=== PATIENT | male | born 1950 | race Caucasian/White ===

== ENCOUNTER 2020-08-22 10:26 | Emergency (ER) | payer OTHER ==
[2020-08-22] MEDS ORDERED: SODIUM CHLORIDE 0.9% 500 ML INFUS.BAG IV ONE ×2 (10:30→12:32)
[2020-08-22 11:04] VITALS: TEMP 97.7; BMI 19.0
[2020-08-22 11:19] LABS: BASO % 0.9 % (0-2.0); EOS % 3.3 % (0-4.5); HEMATOCRIT 36.2 % (35.4-49); HEMOGLOBIN 12.1 GM/dl (11.7-16.9); LYMPH % 18.4 % (8-40); MCH 30.4 pg (25.7-33.7); MCHC 33.5 g/dl (32.0-35.9); MEAN CELL VOLUME 90.7 fl (80-96); MEAN PLT VOLUME 7.3 fl (7.5-11.1); MONO % 8.9 % (3.8-10.2); NEUT % 68.5 % (42.8-82.8); PLATELET COUNT 426 K/MM3 (134-434); RBC 3.98 M/mm3 (4.00-5.60); RDW 13.3 % (11.9-15.9); WHITE BLOOD COUNT 6.9 K/mm3 (4.0-10.8)
[2020-08-22 11:34] LABS: INR 1.22 (0.82-1.09); PROTHROMBIN TIME (PATIENT) 13.5 SEC (10.2-13.0)
[2020-08-22 11:45] LABS: ALBUMIN 4.2 g/dl (3.4-5.0); ALK PHOS 31 U/L (45-117); ANION GAP 10 MMOL/L (8-16); BILIRUBIN,TOTAL 0.6 mg/dl (0.2-1); CALCIUM 9.8 mg/dl (8.5-10); CHLORIDE 94 mmol/L (98-107); CO2 27 mmol/L (21-32); CREATININE 1.7 mg/dl (0.55-1.3); GLUCOSE,RANDOM 108 mg/dl (74-106); MAGNESIUM 1.2 mg/dL (1.8-2.4); PHOSPHOROUS 2.7 mg/dl (2.5-4.9); SGOT/AST 21 U/L (15-37); SGPT/ALT 15 U/L (13-61); SODIUM 131 mmol/L (136-145); TOT PROT 8.1 g/dl (6.4-8.2)
[2020-08-22] MEDS ORDERED: MAGNESIUM SULF 50% (8.12 MEQ/2 ML-1 GM VIAL) IVPB ONE (12:33)
[2020-08-22] MEDS ORDERED: MAGNESIUM SULF 50% (8.12 MEQ/2 ML-1 GM VIAL) ONE (12:35)
[2020-08-22 14:45] LABS: CALCIUM 8.7 mg/dl (8.5-10); CREATININE 1.4 mg/dl (0.55-1.3)
[2020-08-22 14:53] VITALS: BP 115/45; PULSE 62
== END 2020-08-22 15:08 | disposition home or self-care (01) ==
LOC: FER 10:26
PROC: 3E033NZ Introduction of Analgesics, Hypnotics, Sedatives into Peripheral Vein, Percutaneous Approach (ICD-10-PCS; principal; 2020-08-22)
DX: N17.9 Acute kidney failure, unspecified (principal); E83.42 Hypomagnesemia; R31.9 Hematuria, unspecified; N13.0 Hydronephrosis with ureteropelvic junction obstruction; R63.4 Abnormal weight loss
CPT/HCPCS: 36415; 71045-TC-FY; 74176-TC; 80048; 80053; 81003; 81015; 83735; 84100; 84484; 85025; 85610; 85730; 86850; 86900; 86901; 93005; 99285-25; C9803; U0003; U0005

== ENCOUNTER 2020-10-03 05:11 | Day surgery (SDC) | payer OTHER ==
[2020-10-02 10:06] VITALS: BMI 18.6
[2020-10-03] MEDS ORDERED: LIDOCAINE HCL/PF 2% SDV 5ML VIAL ONE (14:06)
[2020-10-03] MEDS ORDERED: PROPOFOL 20 ML ONE (14:06)
[2020-10-03] MEDS ORDERED: DEXAMETHASONE SOD PHOSPHATE 4 MG/1 ML VIAL ONE (14:06)
[2020-10-03] MEDS ORDERED: KETOROLAC TROMETHAMINE 30 MG/1 ML VIAL ONE (14:06)
[2020-10-03] MEDS ORDERED: MIDAZOLAM HCL 2 MG/2 ML SINGLE DOSE VIAL ONE (14:06)
[2020-10-03] MEDS ORDERED: ceFAZolin SODIUM 1 GM VIAL IVPB ONE (14:15)
[2020-10-03] MEDS ORDERED: oxyCODONE HCL 5 MG TABLET PO PRN (14:52)
[2020-10-03] MEDS ORDERED: ONDANSETRON 4 MG/2 ML VIAL IVPUSH PRN (14:52)
[2020-10-03] MEDS ORDERED: LACTATED RINGERS SOLUTION 1,000 ML IV SCH (15:00)
[2020-10-03] MEDS ORDERED: DEXTROSE 5%-0.45% SALINE 1,000 ML IV SCH (15:30)
[2020-10-03 17:18] VITALS: BP 117/51; PULSE 73; TEMP 97.3
== END 2020-10-03 17:18 | disposition home or self-care (01) ==
LOC: JASU-SURG 05:11
PROVIDERS: ATTEND Urology
PROC: 0T788DZ Dilation of Bilateral Ureters with Intraluminal Device, Via Natural or Artificial Opening Endoscopic (ICD-10-PCS; principal; 2020-10-03 14:00)
DX: N13.1 Hydronephrosis with ureteral stricture, not elsewhere classified (principal)
CPT/HCPCS: 76000-TC-FY; 94760

== ENCOUNTER 2020-10-04 10:45 | Emergency (ER) | payer OTHER ==
[2020-10-04 10:55] VITALS: BMI 18.1
[2020-10-04 12:50] LABS: BASO % 0.1 % (0-2.0); EOS % 0.2 % (0-4.5); HEMOGLOBIN 11.9 GM/dL (11.7-16.9); LYMPH % 11.1 % (8-40); MCH 30.4 pg (25.7-33.7); MCHC 33.9 g/dl (32.0-35.9); MEAN CELL VOLUME 89.7 fl (80-96); MEAN PLT VOLUME 7.4 fl (7.5-11.1); MONO % 8.6 % (3.8-10.2); PLATELET COUNT 398 10^3/uL (134-434); RDW 14.2 % (11.9-15.9); WHITE BLOOD COUNT 11.1 K/mm3 (4.0-10.0)
[2020-10-04 13:15] LABS: EPI CELLS >36 /uL (0-25.1); HYALINE CASTS 2 /uL (0-3.1); PH,URINE 6.5 (5.0-8.0); URINE APPEARANCE TURBID; URINE BACTERIA 2 /uL (0-1359); URINE BILIRUBIN NEGATIVE (NEGATIVE); URINE COLOR ORANGE; URINE GLUCOSE (UA) TRACE (NEGATIVE); URINE KETONE NEGATIVE (NEGATIVE); URINE LEUK ESTERASE 3+ (NEGATIVE); URINE NITRITE NEGATIVE (NEGATIVE); URINE PROTEIN 3+ (NEGATIVE); URINE WBC 469 /uL (0-25.8)
[2020-10-04 13:18] LABS: BLOOD UREA NITROGEN 36.3 mg/dL (7-18)
[2020-10-04 13:19] LABS: ALBUMIN 4.3 g/dl (3.4-5.0)
[2020-10-04 13:21] LABS: CREATININE 1.9 mg/dL (0.55-1.3)
[2020-10-04 13:23] LABS: BILIRUBIN,TOTAL 0.5 mg/dL (0.2-1); TOT PROT 8.8 g/dl (6.4-8.2)
[2020-10-04 14:57] VITALS: BP 128/60; PULSE 76; TEMP 97.9
[2020-10-04 15:35] LABS: YEAST NONE SEEN (NEGATIVE)
[2020-10-04 15:36] LABS: URINE RBC 13253 /uL (0-23.9)
== END 2020-10-04 14:50 | disposition home or self-care (01) ==
LOC: JER 10:45
DX: R33.9 Retention of urine, unspecified (principal); R10.9 Unspecified abdominal pain; T81.9XXA Unspecified complication of procedure, initial encounter
CPT/HCPCS: 36415; 80053; 81003; 85025; 87086; 99283-25

== ENCOUNTER 2020-10-08 04:46 | Emergency (ER) | payer OTHER ==
[2020-10-08 05:06] VITALS: BP 153/63; PULSE 92; TEMP 97.8; BMI 18.7
== END 2020-10-08 05:23 | disposition home or self-care (01) ==
LOC: FER 04:46
DX: R33.9 Retention of urine, unspecified (principal)
CPT/HCPCS: 99282-25

== ENCOUNTER 2021-04-17 04:26 | Day surgery (SDC) | payer OTHER ==
[2021-04-10 13:36] VITALS: BMI 18.6
[2021-04-17] MEDS ORDERED: ACETAMINOPHEN 1000 MG/100 ML BAG IVPB ONE (07:20)
[2021-04-17] MEDS ORDERED: LIDOCAINE HCL/PF 2% SDV 5ML VIAL ONE (07:26)
[2021-04-17] MEDS ORDERED: SUCCINYLCHOLINE CHLORIDE 200 MG/10 ML SYRINGE ONE (07:26)
[2021-04-17] MEDS ORDERED: PROPOFOL 20 ML ONE (07:26)
[2021-04-17] MEDS ORDERED: DEXTROSE 5%-0.45% SALINE 1,000 ML IV SCH (07:30)
[2021-04-17] MEDS ORDERED: IBUPROFEN 800 MG/8 ML IJ IVPB SCH (07:30)
[2021-04-17] MEDS ORDERED: ceFAZolin SODIUM 1 GM VIAL IVPB ONE (07:40)
[2021-04-17] MEDS ORDERED: ceFAZolin SODIUM 1 GM VIAL ONE (07:42)
[2021-04-17] MEDS ORDERED: DEXAMETHASONE SOD PHOSPHATE 4 MG/1 ML VIAL ONE (07:49)
[2021-04-17] MEDS ORDERED: ONDANSETRON 4 MG/2 ML VIAL IVPUSH PRN (08:07)
[2021-04-17] MEDS ORDERED: NEOMYCIN/POLYMYXIN/BACITRACIN (TRIPLE ANTIBIOTIC) 28 GM OINTMENT TP SCH (10:00)
[2021-04-17 10:07] VITALS: TEMP 97.3
[2021-04-17 10:11] VITALS: BP 128/66; PULSE 65
== END 2021-04-17 11:00 | disposition home or self-care (01) ==
LOC: JASU-SURG 04:26
PROVIDERS: ATTEND Urology
PROC: 0T9880Z Drainage of Bilateral Ureters with Drainage Device, Via Natural or Artificial Opening Endoscopic (ICD-10-PCS; principal; 2021-04-17 07:30)
DX: N13.39 Other hydronephrosis (principal); N28.9 Disorder of kidney and ureter, unspecified
CPT/HCPCS: 76000-TC-FY; 94760; J0131

== ENCOUNTER 2021-10-16 04:59 | Day surgery (SDC) | payer OTHER ==
[2021-10-15 11:13] VITALS: BMI 18.6
[2021-10-16] MEDS ORDERED: LIDOCAINE HCL/PF 2% SDV 5ML VIAL ONE (07:25)
[2021-10-16] MEDS ORDERED: PROPOFOL 20 ML ONE (07:25)
[2021-10-16] MEDS ORDERED: ceFAZolin SODIUM 1 GM VIAL ONE (07:42)
[2021-10-16] MEDS ORDERED: IBUPROFEN 800 MG/8 ML IJ IVPB PRN (07:53)
[2021-10-16] MEDS ORDERED: DEXTROSE 5%-0.45% SALINE 1,000 ML IV SCH (08:00)
[2021-10-16] MEDS ORDERED: ceFAZolin SODIUM 1 GM VIAL IVPB ONE (08:10)
[2021-10-16] MEDS ORDERED: ACETAMINOPHEN 325 MG TABLET (FP) PO PRN (08:44)
[2021-10-16] MEDS ORDERED: ONDANSETRON 4 MG/2 ML VIAL IVPUSH PRN (08:44)
[2021-10-16] MEDS ORDERED: LACTATED RINGERS SOLUTION 1,000 ML IV SCH (08:45)
[2021-10-16] MEDS ORDERED: ACETAMINOPHEN 1000 MG/100 ML BAG IVPB ONE (09:15)
[2021-10-16] MEDS ORDERED: ACETAMINOPHEN INJECTION 100 ML IVPB ONE (09:54)
[2021-10-16 10:29] VITALS: TEMP 98.7
[2021-10-16 10:32] VITALS: BP 130/62; PULSE 75
== END 2021-10-16 10:53 | disposition home or self-care (01) ==
LOC: JASU-SURG 04:59
PROVIDERS: ATTEND Urology
PROC: 0T9880Z Drainage of Bilateral Ureters with Drainage Device, Via Natural or Artificial Opening Endoscopic (ICD-10-PCS; principal; 2021-10-16 08:15)
DX: N13.30 Unspecified hydronephrosis (principal)
CPT/HCPCS: 76000-TC-FY; 94760